=== PATIENT | male | born 1990 | race Caucasian/White ===

== ENCOUNTER 2019-01-04 01:00 | Emergency (ER) | payer SELFPAY ==
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
--- NOTE | 2019-01-04 02:43 | RADIOLOGY REPORT (SQ) ---
EXAM DESCRIPTION: CT THORACIC SPINE WITHOUT IV CONTRAST COMPLETED DATE/TME: 01/04/2019 01:42 CLINICAL HISTORY: back pain COMPARISON: None available TECHNIQUE: Axial CT of the thoracic spine obtained without contrast. FINDINGS: Alignment of the thoracic spine is maintained without evidence of subluxation. No fracture identified. Vertebral body height preserved. Prevertebral soft tissues are unremarkable. Intervertebral disc height preserved. Minimal endplate spondylosis. Schmorl's nodes at multiple levels throughout the thoracic spine. No definite abnormality identified in the visualized mediastinal, lung, or upper abdominal soft tissues. DLP: 1134.17 mGy-cm IMPRESSION: 1. No acute fracture or subluxation of the thoracic spine. 2. Mild degenerative change of the thoracic spine. This exam was performed according to our departmental dose-optimization program, which includes automated exposure control, adjustment of the mA and/or kV according to patient size and/or use of iterative reconstruction technique.
--- NOTE | 2019-01-04 02:47 | RADIOLOGY REPORT (SQ) ---
EXAM DESCRIPTION: CT LUMBAR SPINE WITHOUT IV CONTRAST COMPLETED DATE/TME: 01/04/2019 01:42 CLINICAL HISTORY: back pain COMPARISON: None available TECHNIQUE: Axial CT of the lumbar spine obtained without contrast. FINDINGS: Alignment of the lumbar spine is maintained without evidence of subluxation. No fracture identified. Vertebral body height preserved. Bilateral L5/S1 pars defects without spondylolisthesis. Prevertebral soft tissues are unremarkable. Intervertebral disc height preserved. Broad-based posterior disc bulge at L5/S1 with mild soft tissue encroachment on the bilateral neural foramen. No acute abnormalities identified. Visualized abdominal and pelvic soft tissues. DLP: 891.68 mGy-cm IMPRESSION: 1. No acute fracture or subluxation of the lumbar spine. 2. Bilateral L5/L1 pars defects without spondylolisthesis. 3. Mild degenerative change of the lumbar spine most prominent at L5/S1. This exam was performed according to our departmental dose-optimization program, which includes automated exposure control, adjustment of the mA and/or kV according to patient size and/or use of iterative reconstruction technique.
[2019-01-04 03:13] VITALS: BP 164/78
== END 2019-01-04 03:11 | disposition home or self-care (01) ==
LOC: EDBD → ER 01:00
DX: M54.5 Low back pain (principal); G89.29 Other chronic pain; K64.8 Other hemorrhoids; M54.6 Pain in thoracic spine; R10.2 Pelvic and perineal pain; K92.1 Melena; R25.1 Tremor, unspecified; F17.200 Nicotine dependence, unspecified, uncomplicated; Z87.81 Personal history of (healed) traumatic fracture
CPT/HCPCS: 72128; 72131; 99283